=== PATIENT | male | born 1985 | race Two or more races ===

== ENCOUNTER 2023-01-26 14:52 | Observation (INO) | payer OTHER ==
[~2023-01-26] VITALS: Ht 175.3 cm; Wt 77.1 kg
[2023-01-26 16:32] LABS: BASOPHILS ABSOLUTE AUTO 0.04 K/mm3 (0.00-0.23); BASOPHILS PERCENT AUTO 1 % (0-2); EOSINOPHILS ABSOLUTE AUTO 0.11 K/mm3 (0.00-0.68); EOSINOPHILS PERCENT AUTO 1 % (0-6); Hematocrit 41.9 % (37.0-53.0); Hemoglobin 14.3 g/dL (13.5-17.5); IMMATURE GRAN ABSOLUTE AUTO 0.03 K/mm3 (0.00-0.10); IMMATURE GRAN PERCENT AUTO 0 % (0-1); LYMPHOCYTES ABSOLUTE AUTO 3.26 K/mm3 (0.84-5.20); LYMPHOCYTES PERCENT AUTO 37 % (21-46); MONOCYTES ABSOLUTE AUTO 0.88 K/mm3 (0.16-1.47); MONOCYTES PERCENT AUTO 10 % (4-13); Mean Corpuscular HGB 28.3 pg (26.0-34.0); Mean Corpuscular HGB Conc 34.1 g/dL (31.5-36.5); Mean Corpuscular Volume 83 fL (80-100); Mean Platelet Volume 9.3 fL (9.1-12.4); NEUTROPHILS ABSOLUTE AUTO 4.44 K/mm3 (1.96-9.15); NEUTROPHILS PERCENT AUTO 51 % (41-73); Platelet Count 276 K/mm3 (150-400); RDW Coefficient Variation 15.6 % (11.7-14.2); Red Blood Cell Count 5.05 M/mm3 (4.30-5.90); White Blood Cell Count 8.76 K/mm3 (4.00-11.30)
[2023-01-26 16:57] LABS: Salicylate <1.7 mg/dL (2.8-20.0)
[2023-01-26 17:16] LABS: Acetaminophen, Random <2.0 ug/mL (10.0-30.0); Alanine Aminotransfer (ALT/SGP 34 U/L (12-78); Albumin/Globulin Ratio 1.2 (0.8-1.8); Alk Phos 94 U/L (50-136); Anion Gap 9 mmol/L (6-16); Aspartate Aminotrans (AST/SGOT 51 U/L (12-37); Bilirubin, Total 1.6 mg/dL (0.1-1.0); Blood Urea Nitrogen 8 mg/dL (8-24); Bun/Creatinine Ratio 9.5 (12.0-20.0); CO2, Blood 26 mmol/L (21-32); Calcium, Blood 8.5 mg/dL (8.5-10.1); Chloride, Blood 108 mmol/L (98-108); Creatinine, Blood 0.84 mg/dL (0.60-1.20); Ethanol (Alcohol), Blood, Med 334 mg/dL; Globulin, Blood 3.3 g/dL (2.2-4.0); Glomerular Filtration Rate 116 (60-); Glucose, Blood 100 mg/dL (70-99); Potassium, Blood 3.5 mmol/L (3.5-5.5); Sodium, Blood 143 mmol/L (136-145); Total Protein, Blood 7.3 g/dL (6.4-8.2)
[2023-01-26 18:17] LABS: Influenza A, PCR NEGATIVE (NEGATIVE); Influenza B, PCR NEGATIVE (NEGATIVE); Resp Syncytial Virus, PCR NEGATIVE (NEGATIVE); SARS-Cov-2 (COVID-19) PCR, MMC NEGATIVE (NEGATIVE)
[2023-01-26 20:15] LABS: Source, Urine Clean Catch
[2023-01-26 20:33] LABS: Bilirubin, Urine Neg (Neg); Blood, Urine Neg (Neg); Glucose Qualitative, Urine Neg (Neg); Ketones, Urine Neg (Neg); Leukocyte Esterase, Urine Neg (Neg); Nitrite, Urine Neg (Neg); Protein, Urine Neg (Neg); Specific Gravity, Urine 1.015 (1.003-1.022); Urobilinogen, Urine NORM (Normal)
[2023-01-26 20:51] LABS: Appearance, Urine Clear (Clear); Color, Urine Yellow (P-Yellow)
[2023-01-26 20:53] LABS: U Amphetamine Screen Not Detected; U Barbituate Screen Not Detected; U Benzodiazapine Screen Not Detected; U Buprenorphine Screen Not Detected; U Cannabinoids Screen DETECTED; U Cocaine Screen Not Detected; U Methadone Screen Not Detected; U Methamphetamine Screen Not Detected; U Opiates Screen Not Detected; U Oxycodone Screen Not Detected; U Phencyclidine Screen Not Detected; U Propoxyphene Screen Not Detected
[2023-01-26 21:13] VITALS: BP 1328/76
== END 2023-01-27 11:35 | disposition home or self-care (01) ==
LOC: ER 14:52 → EOR 14:53
PROVIDERS: ADMIT Emergency Medicine
DX: F31.9 Bipolar disorder, unspecified (principal); F10.10 Alcohol abuse, uncomplicated; Z20.822 Contact with and (suspected) exposure to COVID-19
CPT/HCPCS: 0241U; 80053; 81003; 85025; 86592; 93005; 93010; 96361; 96372-59; 96374; 99285-25; A9270; G0378; G0480; J1790; J2405; J7120